=== PATIENT | male | born 1945 | race Caucasian/White ===

== ENCOUNTER 2017-09-10 14:04 | Emergency (ER) | payer MEDICARE ==
[2017-09-10 15:05] VITALS: BP 130/70
--- NOTE | 2017-09-10 15:57 | UC ---
Skin Complaint HPI - HPI Summary HPI Summary: This is a 72 yo male with a h/o environmental allergies who presents with c/o rash. Rash started yesterday on his abdomen and testicles and has been getting progressively worse. He put Aveeno anti-itch on yesterday which he felt made him feel that his rash was worse. No new medications or other new substances. No h/o similar symptoms. No systemic symptoms. - History of Current Complaint Chief Complaint: UCRash Stated Complaint: RASH Pain Intensity: 0 - Allergy/Home Medications Allergies/Adverse Reactions: Allergies Allergy/AdvReac Type Severity Reaction Status Date / Time No Known Allergies Allergy Verified 09/10/17 15:05 Review of Systems Constitutional: Negative Skin: Rash Eyes: Negative ENT: Negative Respiratory: Negative Cardiovascular: Negative Gastrointestinal: Negative Genitourinary: Negative Motor: Negative Neurovascular: Negative Musculoskeletal: Negative Neurological: Negative Psychological: Negative Is Patient Immunocompromised?: No All Other Systems Reviewed And Are Negative: Yes PMH/Surg Hx/FS Hx/Imm Hx Endocrine History: Dyslipidemia - Surgical History Surgical History: Yes Surgery Procedure, Year, and Place: Bilateral inguinal hernia repair, bladder repair 2008 [facility] [place] - Family History Known Family History: Positive: None - Social History Alcohol Use: Daily Substance Use Type: None Smoking Status (MU): Former Smoker Physical Exam Triage Information Reviewed: Yes Appearance: Well-Appearing Vital Signs: Initial Vital Signs Temp 98.3 F 09/10/17 15:00 Pulse 68 09/10/17 15:00 Resp 18 09/10/17 15:00 BP 130/70 09/10/17 15:00 Pulse Ox 98 09/10/17 15:00 Vital Signs Reviewed: Yes ENT Exam: Normal Neck exam: Normal Respiratory Exam: Normal Cardiovascular Exam: Normal Abdominal Exam: Normal Musculoskeletal Exam: Normal Neurological Exam: Normal Psychological Exam: Normal Skin: Positive: rashes - erthematous macular rash over abdomen and groin. Scrotum is swollen and erythematous with excoration. Course/Dx - Course Course Of Treatment: 72 yo male with erythematous and pruritic rash that started yesterday. No obvious offending agents. Appears allergic in origin. Start oral steroids and recommend close follow up with PCP. - Differential Diagnoses - Skin Complaint Differential Diagnoses: Drug Rash, Eczema, Poison Darling - Diagnoses Provider Diagnoses: Contact dermatitis Discharge - Sign-Out/Discharge Documenting (check all that apply): Discharge/Admit/Transfer - Discharge Plan Condition: Stable Disposition: HOME Prescriptions: methylPREDNISolone [Medrol] 4 mg PO .SEE YE INSTRUCTION #1 ye Patient Education Materials: Contact Dermatitis (DC) Referrals: Lele Durbin MD [Primary Care Provider] - 3 Days Additional Instructions: Instructions: 1. Please call your primary care provider this week for a follow up appointment 2. Take the steroid medication as directed 3. Use benadryl as needed for itching 4. Take a picture of the rash each day to show to your primary care provider - Billing Disposition and Condition Condition: STABLE Disposition: HOME
== END 2017-09-10 16:00 | disposition home or self-care (01) ==
LOC: UCEAST 14:04
DX: L25.9 Unspecified contact dermatitis, unspecified cause (principal); E78.5 Hyperlipidemia, unspecified; Z87.891 Personal history of nicotine dependence
CPT/HCPCS: 99212; G0463